=== PATIENT | female | born 1940 | race Caucasian/White ===

== ENCOUNTER 2021-05-24 14:12 | Outpatient (REF) | payer OTHER, SELFPAY ==
[2021-05-24 21:22] LABS: HCT 42.4 % (36.0-46.0); HGB 13.5 g/dL (11.2-15.7); MCH 28.4 pg (27.0-33.0); MCHC 31.8 % (32.0-36.0); MCV 89.1 fL (80-95); Platelet Count 209 10^3/uL (130-400); RBC 4.76 10^6/uL (3.93-5.22); RDW 14.8 % (11.7-14.6); RDW-SD 48.5 fL; WBC 4.67 10^3/uL (4.4-10.8)
[2021-05-24 21:48] LABS: Anion Gap 8.1 mmol/L (3-11); BUN 21 mg/dL (7-18); CO2 28.9 mmol/L (21.0-32.0); CREATININE 0.9 mg/dL (0.55-1.02); Calcium 9.9 mg/dL (8.5-10.1); Chloride 105 mmol/L (98-107); Glucose 108 mg/dL (74-106); Magnesium 2.3 mg/dL (1.8-2.4); Potassium 4.4 mmol/L (3.5-5.1); Sodium 142 mmol/L (136-145); TSH (W/Ref FT4) 2.02 uIU/mL (0.36-3.74)
== END 2021-05-24 14:13 | disposition home or self-care (01) ==
LOC: NCHCN 14:12
PROVIDERS: Visit Provider Nurse Practitioner Family
DX: I10 Essential (primary) hypertension (principal); Z79.82 Long term (current) use of aspirin; F32.9 Major depressive disorder, single episode, unspecified; Z51.81 Encounter for therapeutic drug level monitoring
CPT/HCPCS: 80048; 85027; 83735; 84443

== ENCOUNTER 2021-08-04 19:59 | Outpatient (REF) | payer OTHER, SELFPAY ==
[2021-08-04 21:37] LABS: Vitamin B12 318 pg/mL (193-986)
== END 2021-08-04 20:00 | disposition home or self-care (01) ==
LOC: NCHCN 19:59
PROVIDERS: Visit Provider Nurse Practitioner Family
DX: R41.3 Other amnesia (principal)
CPT/HCPCS: 82607

== ENCOUNTER 2022-03-14 21:07 | Outpatient (REF) | payer OTHER, MEDICARE, SELFPAY ==
--- OUTSIDE RECORDS SUMMARY | 2022-03-14 21:11 | XMS_ITS | CCD ---
:1940 Author Care Team Providers Name Role Phone RUKHSANA MCKINNON Attending Physician Unavailable Vital Signs Unknown or Not Available. Allergies Allergy Code Allergy Type Reaction Status No Known Allergies 0 No known allergies Act edita Procedures Unknown or Not Available. History of Immunizations Unknown or Not Available. Problems Problem Code Start Date Resolved Date Status Acute respiratory failure with 91360883 Active hypoxia Pneumonia 540411836 Active Fall in home 35666544 06/13/2021 01/20/2022 Resolved Chronic back pain 935921560 01/20/2022 Resolved Hypertension 51229813 01/20/2022 Resolved Hyperlipidemia 18973104 01/20/2022 Resolved Nasal fractures 846095055 06/13/2021 01/20/2022 Resolved Depression 14049013 01/20/2022 Resolved Hematoma of face 258185089 06/13/2021 01/20/2022 Resolved Results Unknown or Not Available. Active Medications Medication Code Dose Units Frequency Route Modification Start Date/Time Albuterol 6593044 2 PUFF NEEDED INHALATION 2 Sulfate HFA EVERY 4 11:43 0.09MG/1Actua HOURS tion Inhalation Suspension Prescription Detail 2 PUFF INHALATION NEEDED EVERY 4 HOURS Aspirin 81MG Oral Tablet, [id number] 81 MILLIGRAMS DAILY ORAL 01/24/2022 11:43 Chewable Prescription Detail TAKE 81 MILLIGRAMS ORAL AIDA Y Atorvastatin Calcium 40MG 073052 40 MILLIGRAMS DAILY ORAL 01/24/2022 11:43 Oral Tablet Prescription Detail TAKE 40 MILLIGRAMS ORAL AIDA Y Bisoprolol Fumarate 5MG Oral [id number] 5 MILLIGRAMS DAILY ORAL 01/24/2022 11:43 Tablet Prescription Detail TAKE 5 MILLIGRAMS ORAL DAILY DULoxetine HCl 60MG Oral [id number] 60 MILLIGRAMS DAILY ORAL 01/24/2022 11:43 Capsule, Delayed Release Prescription Detail TAKE 60 MILLIGRAMS ORAL ADIA Y Entresto 24MG-26MG Oral [id number] 1 EACH TWICE A DAY ORAL 01/24/2022 11:43 Tablet Prescription Detail TAKE 1 EACH ORAL TWICE A DAY Furosemide 20MG Oral Tablet [id number] 20 MILLIGRAMS DAILY ORAL 01/24/2022 11:43 Prescription Detail TAKE 20 MILLIGRAMS ORAL AIDA Y Omeprazole 20 MG Oral Tablet, [id number] 20 MG DAILY ORAL 01/24/2022 11:43 Delayed Release Prescription Detail TAKE 20 MG ORAL DAILY Amoxicillin 875MG Oral [id number] 1 TABLET TWICE A DAY ORAL 01/24/2022 11:40 Tablet Prescription Detail TAKE 1 TABLET ORAL TWICE A D AY Medications Administered During Visit Unknown or Not Available. 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 Discharge Instructions You were admitted to [facility] on 12/01/2021 12:36 with a principal diagnosis of Intervertebral disc disorders with ra diculopathy, lumbosacral region You were discharged from [facility] on 12/01/2021 12:36 Should you have any questions prior to d ischarge, please contact a member of your healthcare team. If you have left the spital and have any questions, please contact your primary care physician. Chief Complaint and Reason For Visit Chief Complaint Date of Onset pain Function Status Unknown or Not Available. Plan of Care Unknown or Not Available. Referral/Transition of Care Unknown or Not Available.
--- OUTSIDE RECORDS SUMMARY | 2022-03-14 21:11 | XMS_ITS | CCD ---
[...] Resolved Date Status Acute respiratory failure with 35857188 Active hypoxia Pneumonia 018181077 Active Fall in home 68982634 06/13/2021 01/20/2022 Resolved Chronic back pain 523473006 01/20/2022 Resolved Hypertension 31187533 01/20/2022 Resolved Hyperlipidemia 37600977 01/20/2022 Resolved Nasal fractures 222001390 06/13/2021 01/20/2022 Resolved Depression 76657655 01/20/2022 Resolved Hematoma of face 488139160 06/13/2021 01/20/2022 Resolved Results Unknown or Not Available. Active Medications Medication Code Dose Units Frequency Route Modification Start Date/Time Albuterol 6472795 2 PUFF NEEDED INHALATION 2 Sulfate HFA EVERY 4 11:43 0.09MG/1Actua HOURS tion Inhalation Suspension Prescription Detail 2 PUFF INHALATION NEEDED EVERY 4 HOURS Aspirin 81MG Oral Tablet, [id number] 81 MILLIGRAMS DAILY ORAL 01/24/2022 11:43 Chewable Prescription Detail TAKE 81 MILLIGRAMS ORAL AIDA Y Atorvastatin Calcium 40MG 058282 40 MILLIGRAMS DAILY ORAL 01/24/2022 11:43 Oral Tablet Prescription Detail TAKE 40 MILLIGRAMS ORAL AIDA Y Bisoprolol Fumarate 5MG Oral [id number] 5 MILLIGRAMS DAILY ORAL 01/24/2022 11:43 Tablet Prescription Detail TAKE 5 MILLIGRAMS ORAL DAILY DULoxetine HCl 60MG Oral [id number] 60 MILLIGRAMS DAILY ORAL 01/24/2022 11:43 Capsule, Delayed Release Prescription Detail TAKE 60 MILLIGRAMS ORAL AIDA Y Entresto 24MG-26MG Oral [id number] 1 EACH TWICE A DAY ORAL 01/24/2022 11:43 Tablet Prescription Detail TAKE 1 EACH ORAL TWICE A DAY Furosemide 20MG Oral Tablet [id number] 20 MILLIGRAMS DAILY ORAL 01/24/2022 11:43 Prescription Detail TAKE 20 MILLIGRAMS ORAL AIDA Y Omeprazole 20 MG Oral Tablet, [id number] 20 MG DAILY ORAL 01/24/2022 11:43 Delayed Release Prescription Detail TAKE 20 MG ORAL DAILY Amoxicillin 875MG Oral [id number] 1 TABLET TWICE A DAY ORAL 01/24/2022 11:40 Tablet Prescription Detail TAKE 1 TABLET ORAL TWICE A D AY Medications Administered During Visit Unknown or Not Available. Encounters Encounter Diagnosis Diagnosis Code Start Date Other low back pain M5459 12/14/2021 Social History Smoking Status Code Start Date End Date Former smoker [id number] Patient Decision Aids Unknown or Not Available. Discharge Instructions You were admitted to [facility] on 12/14/2021 10:26 with a principal diagnosis of Other low back pain You were discharged from [facility] on 12/14/2021 10:26 Should you have any questions prior to d ischarge, please contact a member of your healthcare team. If you have left the spital and have any questions, please contact your primary care physician. Chief Complaint and Reason For Visit Unknown or Not Available. Function Status Unknown or Not Available. Plan of Care Unknown or Not Available. Referral/Transition of Care Unknown or Not Available.
--- OUTSIDE RECORDS SUMMARY | 2022-03-14 21:12 | XMS_ITS | CCD ---
:1940 Author Care Team Providers Name Role Phone ABBY SINGH Attending Physician Unavailable Vital Signs Unknown or Not Available. Allergies Allergy Code Allergy Type Reaction Status No Known Allergies 0 No known allergies Act edita Procedures Unknown or Not Available. History of Immunizations Unknown or Not Available. Problems Problem Code Start Date Resolved Date Status Acute respiratory failure with 16562815 Active hypoxia Pneumonia 398378861 Active Fall in home 17138207 06/13/2021 01/20/2022 Resolved Chronic back pain 703590104 01/20/2022 Resolved Hypertension 27485889 01/20/2022 Resolved Hyperlipidemia 58316806 01/20/2022 Resolved Nasal fractures 956545454 06/13/2021 01/20/2022 Resolved Depression 74398251 01/20/2022 Resolved Hematoma of face 360612044 06/13/2021 01/20/2022 Resolved Results Unknown or Not Available. Active Medications Medication Code Dose Units Frequency Route Modification Start Date/Time Albuterol 9237678 2 PUFF NEEDED INHALATION 2 Sulfate HFA EVERY 4 11:43 0.09MG/1Actua HOURS tion Inhalation Suspension Prescription Detail 2 PUFF INHALATION NEEDED EVERY 4 HOURS Aspirin 81MG Oral Tablet, [id number] 81 MILLIGRAMS DAILY ORAL 01/24/2022 11:43 Chewable Prescription Detail TAKE 81 MILLIGRAMS ORAL AIDA Y Atorvastatin Calcium 40MG 461284 40 MILLIGRAMS DAILY ORAL 01/24/2022 11:43 Oral Tablet Prescription Detail TAKE 40 MILLIGRAMS ORAL AIDA Y Bisoprolol Fumarate 5MG Oral 309607 5 MILLIGRAMS DAILY ORAL 01/24/2022 11:43 Tablet Prescription Detail TAKE 5 MILLIGRAMS ORAL DAILY DULoxetine HCl 60MG Oral [id number] 60 MILLIGRAMS DAILY ORAL 01/24/2022 11:43 Capsule, Delayed Release Prescription Detail TAKE 60 MILLIGRAMS ORAL AIDA Y Entresto 24MG-26MG Oral [id number] 1 EACH TWICE A DAY ORAL 01/24/2022 11:43 Tablet Prescription Detail TAKE 1 EACH ORAL TWICE A DAY Furosemide 20MG Oral Tablet [id number] 20 MILLIGRAMS DAILY ORAL 01/24/2022 11:43 Prescription Detail TAKE 20 MILLIGRAMS ORAL AIDA Y Omeprazole 20 MG Oral Tablet, [id number] 20 MG DAILY ORAL 01/24/2022 11:43 Delayed Release Prescription Detail TAKE 20 MG ORAL DAILY Amoxicillin 875MG Oral [id number] 1 TABLET TWICE A DAY ORAL 01/24/2022 11:40 Tablet Prescription Detail TAKE 1 TABLET ORAL TWICE A D AY Medications Administered During Visit Unknown or Not Available. Encounters Encounter Diagnosis Diagnosis Code Start Date Post-traumatic headache, unspecified, not intractable [id number] 07/06/2021 Social History Smoking Status Code Start Date End Date Former smoker [id number] Patient Decision Aids Unknown or Not Available. Discharge Instructions You were admitted to [facility] on 07/06/2021 17:22 with a principal diagnosis of Post-traumatic headache, unspecified, not intractable You were discharged from [facility] on 07/06/2021 17:22 Should you have any questions prior to d ischarge, please contact a member of your healthcare team. If you have left the ho spital and have any questions, please contact your primary care physician. Chief Complaint and Reason For Visit Unknown or Not Available. Function Status Unknown or Not Available. Plan of Care Unknown or Not Available. Referral/Transition of Care Unknown or Not Available.
--- OUTSIDE RECORDS SUMMARY | 2022-03-14 21:12 | XMS_ITS | CCD ---
:1940 Author Care Team Providers Name Role Phone BRANDI LINDSAY Attending Physician Unavailable Vital Signs Unknown or Not Available. Allergies Allergy Code Allergy Type Reaction Status No Known Allergies 0 No known allergies Act edita Procedures Unknown or Not Available. History of Immunizations Unknown or Not Available. Problems Problem Code Start Date Resolved Date Status Acute respiratory failure with 60882654 Active hypoxia Pneumonia 145596795 Active Fall in home 09725411 06/13/2021 01/20/2022 Resolved Chronic back pain 431075318 01/20/2022 Resolved Hypertension 21271718 01/20/2022 Resolved Hyperlipidemia 98404191 01/20/2022 Resolved Nasal fractures 532653309 06/13/2021 01/20/2022 Resolved Depression 88240883 01/20/2022 Resolved Hematoma of face 234020262 06/13/2021 01/20/2022 Resolved Results Unknown or Not Available. Active Medications Medication Code Dose Units Frequency Route Modification Start Date/Time Albuterol 7301843 2 PUFF NEEDED INHALATION 2 Sulfate HFA EVERY 4 11:43 0.09MG/1Actua HOURS tion Inhalation Suspension Prescription Detail 2 PUFF INHALATION NEEDED EVERY 4 HOURS Aspirin 81MG Oral Tablet, [id number] 81 MILLIGRAMS DAILY ORAL 01/24/2022 11:43 Chewable Prescription Detail TAKE 81 MILLIGRAMS ORAL AIDA Y Atorvastatin Calcium 40MG 254318 40 MILLIGRAMS DAILY ORAL 01/24/2022 11:43 Oral Tablet Prescription Detail TAKE 40 MILLIGRAMS ORAL AIDA Y Bisoprolol Fumarate 5MG Oral 126151 5 MILLIGRAMS DAILY ORAL 01/24/2022 11:43 Tablet Prescription Detail TAKE 5 MILLIGRAMS ORAL DAILY DULoxetine HCl 60MG Oral [id number] 60 MILLIGRAMS DAILY ORAL 01/24/2022 11:43 Capsule, Delayed Release Prescription Detail TAKE 60 MILLIGRAMS ORAL AIDA Y Entresto 24MG-26MG Oral [id number] 1 EACH TWICE A DAY ORAL 01/24/2022 11:43 Tablet Prescription Detail TAKE 1 EACH ORAL TWICE A DAY Furosemide 20MG Oral Tablet [id number] 20 MILLIGRAMS DAILY ORAL 01/24/2022 11:43 Prescription Detail TAKE 20 MILLIGRAMS ORAL AIDA Y Omeprazole 20 MG Oral Tablet, [id number] 20 MG DAILY ORAL 01/24/2022 11:43 Delayed Release Prescription Detail TAKE 20 MG ORAL DAILY Amoxicillin 875MG Oral [id number] 1 TABLET TWICE A DAY ORAL 01/24/2022 11:40 Tablet Prescription Detail TAKE 1 TABLET ORAL TWICE A D AY Medications Administered During Visit Unknown or Not Available. Encounters Encounter Diagnosis Diagnosis Code Start Date Encounter for other specified aftercare Z5189 10/01/2020 Social History Smoking Status Code Start Date End Date Former smoker [id number] Patient Decision Aids Unknown or Not Available. Discharge Instructions You were admitted to [facility] on 10/01/2020 15:01 with a principal diagnosis of Encounter for other specifi ed aftercare You were discharged from [facility] on 10/01/2020 14:48 Should you have any questions prior to [...]
--- OUTSIDE RECORDS SUMMARY | 2022-03-14 21:12 | XMS_ITS | CCD ---
:1940 Author Care Team Providers Name Role Phone BC SIMMS Attending Physician Unavailable ADY BYNUM Roundgeorgi (Secondary) Physician Unavailab kari Vital Signs Unknown or Not Available. Allergies Allergy Code Allergy Type Reaction Status No Known Allergies 0 No known allergies Act edita Procedures Unknown or Not Available. History of Immunizations Unknown or Not Available. Problems Problem Code Start Date Resolved Date Status Acute respiratory failure with 24296890 Active hypoxia Pneumonia 446083547 Active Fall in home 68513482 06/13/2021 01/20/2022 Resolved Chronic back pain 190314476 01/20/2022 Resolved Hypertension 42871140 01/20/2022 Resolved Hyperlipidemia 79195525 01/20/2022 Resolved Nasal fractures 811425445 06/13/2021 01/20/2022 Resolved Depression 88878173 01/20/2022 Resolved Hematoma of face 546282533 06/13/2021 01/20/2022 Resolved Results Unknown or Not Available. Active Medications Medication Code Dose Units Frequency Route Modification Start Date/Time Albuterol 0867582 2 PUFF NEEDED INHALATION 2 Sulfate HFA EVERY 4 11:43 0.09MG/1Actua HOURS tion Inhalation Suspension Prescription Detail 2 PUFF INHALATION NEEDED EVERY 4 HOURS Aspirin 81MG Oral Tablet, [id number] 81 MILLIGRAMS DAILY ORAL 01/24/2022 11:43 Chewable Prescription Detail TAKE 81 MILLIGRAMS ORAL AIDA Y Atorvastatin Calcium 40MG 125105 40 MILLIGRAMS DAILY ORAL 01/24/2022 11:43 Oral Tablet Prescription Detail TAKE 40 MILLIGRAMS ORAL AIDA Y Bisoprolol Fumarate 5MG Oral 134429 5 MILLIGRAMS DAILY ORAL 01/24/2022 11:43 Tablet Prescription Detail TAKE 5 MILLIGRAMS ORAL DAILY DULoxetine HCl 60MG Oral [id number] 60 MILLIGRAMS DAILY ORAL 01/24/2022 11:43 Capsule, Delayed Release Prescription Detail TAKE 60 MILLIGRAMS ORAL AIDA Y Entresto 24MG-26MG Oral [id number] 1 EACH TWICE A DAY ORAL 01/24/2022 11:43 Tablet Prescription Detail TAKE 1 EACH ORAL TWICE A DAY Furosemide 20MG Oral Tablet [id number] 20 MILLIGRAMS DAILY ORAL 01/24/2022 11:43 Prescription Detail TAKE 20 MILLIGRAMS ORAL AIDA Y Omeprazole 20 MG Oral Tablet, [id number] 20 MG DAILY ORAL 01/24/2022 11:43 Delayed Release Prescription Detail TAKE 20 MG ORAL DAILY Amoxicillin 875MG Oral [id number] 1 TABLET TWICE A DAY ORAL 01/24/2022 11:40 Tablet Prescription Detail TAKE 1 TABLET ORAL TWICE A D AY Medications Administered During Visit Unknown or Not Available. Encounters Unknown or Not Available. Social History Smoking Status Code Start Date End Date Current some day smoker [id number] Patient Decision Aids Unknown or Not Available. Discharge Instructions You were admitted to [facility] on 01/20/2022 12:18 You were discharged from [facility] on 01/20/2022 17:37 Should you have any questions prior to [...]
--- OUTSIDE RECORDS SUMMARY | 2022-03-14 21:12 | XMS_ITS | CCD ---
:1940 Author Care Team Providers Name Role Phone BC SIMMS Attending Physician Unavailable UNLISTED REQUESTED, PROVIDER - Er Physician 1 Unavailab ADY Chi Roundgeorgi (Secondary) Physician Unavailab JENNIFER Cruz Registered Nurse Unavailable Vital Signs Vital Sign Value Unit Date/Time Recent/Initial? BMI (Body Mass Index) 27.46 kg/m^2 01/20/2022 09:28 In itial VS Weight Measured 160 lbs 01/20/2022 09:28 Initial VS Height 64 in 01/20/2022 09:28 Initial VS BSA (Body Surface Area) 1.81 m^2 01/20/2022 09:28 Initial VS BP Systolic 144 mmHg 01/20/2022 09:28 Initial VS BP Diastolic 74 mmHg 01/20/2022 09:28 Initial VS Respiratory Rate 20 bpm 01/20/2022 09:28 Initial VS Heart Rate 98 bpm 01/20/2022 09:28 Initial VS O2 % BldC Oximetry 98 % 01/20/2022 09:28 Initi al VS Body Temperature 37.8 degrees 01/20/2022 09:28 Initial VS BP Systolic 119 mmHg 01/24/2022 07:15 Most Recent VS BP Diastolic 66 mmHg 01/24/2022 07:15 Most Recent VS Body Temperature 36.7 degrees 01/24/2022 07:15 Most Re cent VS Respiratory Rate 16 bpm 01/24/2022 07:18 Most Re cent VS Heart Rate 69 bpm 01/24/2022 07:18 Most Recent VS O2 % BldC Oximetry 94 % 01/24/2022 07:18 Most Recent VS Allergies Allergy Code Allergy Type Reaction Status No Known Allergies 0 No known allergies Act edita Procedures Unknown or Not Available. History of Immunizations Unknown or Not Available. Problems Problem Code Start Date Resolved Date Status Acute respiratory failure with 39270430 Active hypoxia Pneumonia 106453511 Active Fall in home 71755070 06/13/2021 01/20/2022 Resolved Chronic back pain 457759116 01/20/2022 Resolved Hypertension 19298248 01/20/2022 Resolved Hyperlipidemia 02944924 01/20/2022 Resolved Nasal fractures 786927473 06/13/2021 01/20/2022 Resolved Depression 96146701 01/20/2022 Resolved Hematoma of face 972180849 06/13/2021 01/20/2022 Resolved Results BASIC METABOLIC PANEL (BMP) - Collect Da te/Time: 01/21/2022 06:41 Test Name Code Test Result Test Units Test Ref Range GLUCOSE 2345-7 150 mg/dL L=70 H=116 BUN 3094-0 14 mg/dL L=6 H=25 CREATININE 2160-0 0.67 mg/dL L=0.51 H=0.95 SODIUM SERUM 2951-2 139 mmol/L L=136 H=145 POTASSIUM SERUM 2823-3 3.9 mmol/L L=3.4 H=5.2 CHLORIDE SERUM 2075-0 104 mmol/L L=96 H=110 CARBON DIOXIDE (CO2) 2028-9 30 mmol/L L=22 H= 34 ANION GAP 50846-7 5.1 mmol/L CALCIUM SERUM 98306-1 9.8 mg/dL L=8.2 H=10.2 AGE 81 years eGFR (non-Afr.Amer.) 73513-5 84 mL/min eGFR (Afr-Norwegian) 60719-7 102 mL/min BASIC METABOLIC PANEL (BMP) - Collect Da te/Time: 01/20/2022 10:15 Test Name Code Test Result Test Units Test Ref Range GLUCOSE 2345-7 131 mg/dL L=70 H=116 BUN 3094-0 12 mg/dL L=6 H=25 CREATININE 2160-0 0.73 mg/dL L=0.51 H=0.95 SODIUM SERUM 2951-2 140 mmol/L L=136 H=145 POTASSIUM SERUM 2823-3 3.6 mmol/L L=3.4 H=5.2 CHLORIDE SERUM 2075-0 104 mmol/L L=96 H=110 CARBON DIOXIDE (CO2) 2028-9 29 mmol/L L=22 H= 34 ANION GAP 27073-5 7.4 mmol/L CALCIUM SERUM 58260-9 9.7 mg/dL L=8.2 H=10.2 AGE 81 years eGFR (non-Afr.Amer.) 52553-7 76 mL/min eGFR (Afr-Norwegian) 28751-2 92 mL/min CBC W/ DIFFERENTIAL* - Collect Date/Time : 01/22/2022 06:47 Test Name Code Test Result Test Units Test Ref Range WBC 6690-2 9.50 th/cmm L=5.00 H=10.00 NEUT % 79.5 % L=40.0 H=80.0 LYMPH % 14.5 % L=10.0 H=50.0 MONO % 17414-5 4.7 % L=2.0 H=12.0 EOS % 0.6 % L=0.0 H=8.0 BASO % 0.3 % L=0.0 H=3.0 IG % 2514-8 0.4 % L=0.0 H=1.1 NRBC % 54743-7 0.0 % L=0.0 H=0.0 NEUT abs count 751-8 7.5 th/cmm L=1.6 H=8.4 LYMPH abs count 731-0 1.4 th/cmm L=1.5 H=4.0 MONO abs count 742-7 0.5 th/cmm L=0.2 H=1.0 EOS abs count 711-2 0.1 th/cmm L=0.0 H=0.5 BASO abs count 704-7 0.0 th/cmm L=0.0 H=0.2 IG abs count 35449-0 0.0 th/cmm L=0.0 H=0.1 NRBC abs count 97576-3 0.0 mil/cmm L=0.0 H=0.0 RBC 789-8 4.20 mil/cmm L=3.90 H=5.40 HEMOGLOBIN 718-7 12.1 gm/dL L=12.0 H=16.0 HEMATOCRIT 4544-3 38 % L=37 H=47 MCV 787-2 91 fL L=82 H=92 MCH 785-6 28.8 pg L=27.0 H=31.0 MCHC 786-4 31.7 % L=32.0 H=36.0 RDW-SD 788-0 46.6 fL L=39.0 H=49.0 PLATELET COUNT 777-3 251 th/cmm L=150 H=450 CBC W/ DIFFERENTIAL* - Collect Date/Time : 01/21/2022 06:41 Test Name Code Test Result Test Units Test Ref Range WBC 6690-2 12.67 th/cmm L=5.00 H=10.00 NEUT % 90.8 % L=40.0 H=80.0 LYMPH % 4.3 % L=10.0 H=50.0 MONO % 51530-8 4.4 % L=2.0 H=12.0 EOS % 0.0 % L=0.0 H=8.0 BASO % 0.1 % L=0.0 H=3.0 IG % 2514-8 0.4 % L=0.0 H=1.1 NRBC % 02594-7 0.0 % L=0.0 H=0.0 NEUT abs count 751-8 11.5 th/cmm L=1.6 H=8.4 LYMPH abs count 731-0 0.6 th/cmm L=1.5 H=4.0 MONO abs count 742-7 0.6 th/cmm L=0.2 H=1.0 EOS abs count 711-2 0.0 th/cmm L=0.0 H=0.5 BASO abs count 704-7 0.0 th/cmm L=0.0 H=0.2 IG abs count 19179-9 0.1 th/cmm L=0.0 H=0.1 NRBC abs count 06868-4 0.0 mil/cmm L=0.0 H=0.0 RBC 789-8 3.85 mil/cmm L=3.90 H=5.40 HEMOGLOBIN 718-7 11.1 gm/dL L=12.0 H=16.0 HEMATOCRIT 4544-3 35 % L=37 H=47 MCV 787-2 90 fL L=82 H=92 MCH 785-6 28.8 pg L=27.0 H=31.0 MCHC 786-4 32.0 % L=32.0 H=36.0 RDW-SD 788-0 45.9 fL L=39.0 H=49.0 PLATELET COUNT 777-3 211 th/cmm L=150 H=450 Hypochromia 1+ N/A CBC W/ DIFFERENTIAL* - Collect Date/Time : 01/20/2022 10:15 Test Name Code Test Result Test Units Test Ref Range WBC 6690-2 9.92 th/cmm L=5.00 H=10.00 NEUT % 88.0 % L=40.0 H=80.0 LYMPH % 4.8 % L=10.0 H=50.0 MONO % 05486-9 6.3 % L=2.0 H=12.0 EOS % 0.4 % L=0.0 H=8.0 BASO % 0.2 % L=0.0 H=3.0 IG % 2514-8 0.3 % L=0.0 H=1.1 NRBC % 14340-0 0.0 % L=0.0 H=0.0 NEUT abs count 751-8 8.7 th/cmm L=1.6 H=8.4 LYMPH abs count 731-0 0.5 th/cmm L=1.5 H=4.0 MONO abs count 742-7 0.6 th/cmm L=0.2 H=1.0 EOS abs count 711-2 0.0 th/cmm L=0.0 H=0.5 BASO abs count 704-7 0.0 th/cmm L=0.0 H=0.2 IG abs count 05676-9 0.0 th/cmm L=0.0 H=0.1 NRBC abs count 72921-8 0.0 mil/cmm L=0.0 H=0.0 RBC 789-8 4.21 mil/cmm L=3.90 H=5.40 HEMOGLOBIN 718-7 12.3 gm/dL L=12.0 H=16.0 HEMATOCRIT 4544-3 38 % L=37 H=47 MCV 787-2 90 fL L=82 H=92 MCH 785-6 29.2 pg L=27.0 H=31.0 MCHC 786-4 32.4 % L=32.0 H=36.0 RDW-SD 788-0 46.5 fL L=39.0 H=49.0 PLATELET COUNT 777-3 182 th/cmm L=150 H=450 SUMMER COVID FLU RSV GENEXPERT - Collect Date/Time: 01/20/2022 09:39 Test Name Code Test Result Test Units Test Ref Range COVID 10787-2 NEGATIVE N/A Normal: Negativ e INFLUENZA A DNA 18627-3 NEGATIVE N/A Normal: Nega tive INFLUENZA B DNA 64253-7 NEGATIVE N/A Normal: Nega tive RSV DNA 31711-4 NEGATIVE N/A Normal: Negativ e CULT URINE CULTURE* - Collect Date/Time: 01/20/2022 11:15 Test Name Code Test Result Test Units Test Ref Range COLLECTION MODE: 69319-2 VOID N/A URINALYSIS WITH REFLEX CULT IF POSITIVE* - Collect Date/Time: 01/20/2022 11:15 Test Name Code Test Result Test Units Test Ref Range COLLECTION MODE: 39055-8 VOID N/A Color 5778-6 YELLOW N/A yellow Appearance 5767-9 SL CLOUD N/A clear Glucose urine 76079-1 NEGATIVE N/A negative mg/dl Bilirubin 5770-3 NEGATIVE N/A negative Ketones 2514-8 NEGATIVE N/A negative mg/dl Spec gravity 5811-5 1.015 N/A 1.003 - 1.030 pH urine 2756-5 6.5 N/A 5.0 - 7.0 Protein 63522-5 NEGATIVE N/A negative mg/dl Urobilinogen 82192-7 0.2 N/A <or= 1 EU/dl Nitrite. 5802-4 POSITIVE N/A negative Blood 5794-3 MODERATE N/A negative Leukocytes. NEGATIVE N/A negative MICROSCOPIC INDICATED N/A WBCs. 46974-6 0-5 N/A 0-5 / hpf RBCs 53779-6 10-25 N/A 0-5 / hpf Epith cells 17070-5 0-5 N/A 0-5 / hpf Cell types squamous N/A Crystals none N/A none Bacteria large N/A none Mucus 8247-9 none N/A none Casts 63175-9 none N/A none /lpf Active Medications Medication Code Dose Units Frequency Route Modification Start Date/Time Albuterol 8323003 2 PUFF NEEDED INHALATION 2 Sulfate HFA EVERY 4 11:43 0.09MG/1Actua HOURS tion Inhalation Suspension Prescription Detail 2 PUFF INHALATION NEEDED EVERY 4 HOURS Aspirin 81MG Oral Tablet, 163897 81 MILLIGRAMS DAILY ORAL 01/24/2022 11:43 Chewable Prescription Detail TAKE 81 MILLIGRAMS ORAL AIDA Y Atorvastatin Calcium 40MG 770657 40 MILLIGRAMS DAILY ORAL 01/24/2022 11:43 Oral Tablet Prescription Detail TAKE 40 MILLIGRAMS ORAL AIDA Y Bisoprolol Fumarate 5MG Oral 214777 5 MILLIGRAMS DAILY ORAL 01/24/2022 11:43 Tablet Prescription Detail TAKE 5 MILLIGRAMS ORAL DAILY DULoxetine HCl 60MG Oral 649136 60 MILLIGRAMS DAILY ORAL 01/24/2022 11:43 Capsule, Delayed Release Prescription Detail TAKE 60 MILLIGRAMS ORAL AIDA Y Entresto 24MG-26MG Oral 6569643 1 EACH TWICE A DAY ORAL 01/24/2022 11:43 Tablet Prescription Detail TAKE 1 EACH ORAL TWICE A DAY Furosemide 20MG Oral Tablet 355897 20 MILLIGRAMS DAILY ORAL 01/24/2022 11:43 Prescription Detail TAKE 20 MILLIGRAMS ORAL AIDA Y Omeprazole 20 MG Oral Tablet, [id number] 20 MG DAILY ORAL 01/24/2022 11:43 Delayed Release Prescription Detail TAKE 20 MG ORAL DAILY Amoxicillin 875MG Oral 241025 1 TABLET TWICE A DAY ORAL 01/24/2022 11:40 Tablet Prescription Detail TAKE 1 TABLET ORAL TWICE A D AY Medications Administered During Visit Medication Dose Units Frequency Route Date/Time of L ast Dose ACETAMINOPHEN INJ IVPB: 1000 MG X1 IVPB 1 03/22/2021 10:24 1000MG/100ML ALBUTEROL/IPRATROP 3 ML X1 INH 2021 10:39 UPDRAFT:2.5/0.5MG/3ML MethylPREDNISolone SUC INJ 125 MG X1 IVP 01/20/2022 10:33 SDV:125MG/2ML SODIUM CHLORIDE 0.9% 500ML 500 ML X1 IV 01/20/2022 10:23 AZITHROMYCIN IVPB: 500MG/250ML 500 MG X1 IVPB 01/20/2022 13:12 CefTRIAXone IVPB: 1GM/50ML 1 GM X1 IVPB 01/20/2022 11:55 ATORVASTATIN TABLET: 40MG 40 MG DAILY PO 01/24/2022 08:45 METOPROLOL SUCCINATE TABLET 25 MG DAILY PO 01/24/2022 08:45 ER: 25MG FUROSEMIDE TABLET: 20MG 20 MG DAILY PO 1 03/26/2021 08:45 PANTOPRAZOLE TABLET: 40MG 40 MG Q7AM PO 01/24/2022 06:36 ASPIRIN TABLET CHEWABLE: 81MG 81 MG DAILY PO 01/24/2022 08:45 ENOXAPARIN INJ SYRINGE: 30 MG Q24H SUBQ 1 03/24/2021 15:11 30MG/0.3ML SODIUM CHLORIDE 0.9% FLUSH 2 ML Q8H IVP 01/23/2022 06:49 10ML SYRINGE ACETAMINOPHEN TABLET: 325MG 650 MG PRN Q4H PO 01/20/2022 15:19 ACETAMINOPHEN INJ IVPB: 1000 MG PRN Q6H IVPB 1 03/24/2021 15:57 1000MG/100ML CefTRIAXone IVPB: 1GM/50ML 1 GM Q24H IVPB 01/23/2022 11:03 AZITHROMYCIN IVPB: 500MG/250ML 500 MG Q24H IVPB 01/22/2022 12:[address]: 30MG 60 MG DAILY PO 01/24/2022 08:45 SACUBITRIL/VALSARTAN TABLET: 1 TAB BID PO 01/24/2022 08:45 24MG/26MG ACETAMINOPHEN TABLET: 325MG 975 MG PRN Q6H PO 01/24/2022 06:39 ALBUTEROL/IPRATROP 3 ML QID RESP INH 2021 07:17 UPDRAFT:2.5/0.5MG/3ML BUDESONIDE UPDRAFT: 0.5MG/2ML 0.5 MG BID RESP INH 01/24/2022 07:17 NAPROXEN TABLET: 250MG 250 MG X1 PO 12:05 NAPROXEN TABLET: 250MG 250 MG BID WITH FOOD PO 01/24/2022 08:45 AMOXICILLIN CAPSULE: 250MG 500 MG TID PO 01/24/2022 08:45 Encounters Encounter Diagnosis Diagnosis Code Start Date Pneumonia, unspecified organism J189 01/21/20 22 Social History Smoking Status Code Start Date End Date Current some day smoker [id number] Patient Decision Aids Patient Decision Aid Patient Portal Access Pneumonia Discharge Instructions You were admitted to [facility] on 01/20/2022 12:18 with a principal diagnosis of Pneumonia, unspecified organism You had the following tests done: CBC W / DIFFERENTIAL* BASIC METABOLIC PANEL (BMP) CBC W/ DIFFERENTIAL* CULT URINE CULTURE* URINALYSIS WITH REFLEX CULT IF POSITIVE* BASIC METABOLIC PANEL (BMP) CBC W/ DIFFE RENTIAL* [facility] COVID FLU RSV GENEXPERT You were discharged from [facility] on 01/24/2022 14:15 Should you have any questions prior to d ischarge, please contact a member of your healthcare team. If you have left the ho spital and have any questions, please contact your primary care physician. Chief Complaint and Reason For Visit Chief Complaint Date of Onset RESPIRATORY FAILURE/ PNEUMONIA 01/21/2022 Function Status Unknown or Not Available. Plan of Care Unknown or Not Available. Referral/Transition of Care Unknown or Not Available.
--- OUTSIDE RECORDS SUMMARY | 2022-03-14 21:12 | XMS_ITS | CCD ---
:1940 Author Care Team Providers Name Role Phone JENNIFER RIVERS, WILEY Gonzalez Attending Physician Unavailable Vital Signs Unknown or Not Available. Allergies Allergy Code Allergy Type Reaction Status No Known Allergies 0 No known allergies Act deita Procedures Unknown or Not Available. History of Immunizations Unknown or Not Available. Problems Problem Code Start Date Resolved Date Status Acute respiratory failure with 01555822 Active hypoxia Pneumonia 681403046 Active Fall in home 47913622 06/13/2021 01/20/2022 Resolved Chronic back pain 856962482 01/20/2022 Resolved Hypertension 86564702 01/20/2022 Resolved Hyperlipidemia 18331417 01/20/2022 Resolved Nasal fractures 823160688 06/13/2021 01/20/2022 Resolved Depression 48496242 01/20/2022 Resolved Hematoma of face 181283940 06/13/2021 01/20/2022 Resolved Results Unknown or Not Available. Active Medications Medication Code Dose Units Frequency Route Modification Start Date/Time Albuterol 1773527 2 PUFF NEEDED INHALATION 2 Sulfate HFA EVERY 4 11:43 0.09MG/1Actua HOURS tion Inhalation Suspension Prescription Detail 2 PUFF INHALATION NEEDED EVERY 4 HOURS Aspirin 81MG Oral Tablet, 523835 81 MILLIGRAMS DAILY ORAL 01/24/2022 11:43 Chewable Prescription Detail TAKE 81 MILLIGRAMS ORAL AIDA Y Atorvastatin Calcium 40MG 173333 40 MILLIGRAMS DAILY ORAL 01/24/2022 11:43 Oral Tablet Prescription Detail TAKE 40 MILLIGRAMS ORAL AIDA Y Bisoprolol Fumarate 5MG Oral 572733 5 MILLIGRAMS DAILY ORAL 01/24/2022 11:43 Tablet Prescription Detail TAKE 5 MILLIGRAMS ORAL DAILY DULoxetine HCl 60MG Oral 037656 60 MILLIGRAMS DAILY ORAL 01/24/2022 11:43 Capsule, Delayed Release Prescription Detail TAKE 60 MILLIGRAMS ORAL AIDA Y Entresto 24MG-26MG Oral 0541422 1 EACH TWICE A DAY ORAL 01/24/2022 11:43 Tablet Prescription Detail TAKE 1 EACH ORAL TWICE A DAY Furosemide 20MG Oral Tablet 507071 20 MILLIGRAMS DAILY ORAL 01/24/2022 11:43 Prescription Detail TAKE 20 MILLIGRAMS ORAL AIDA Y Omeprazole 20 MG Oral Tablet, [id number] 20 MG DAILY ORAL 01/24/2022 11:43 Delayed Release Prescription Detail TAKE 20 MG ORAL DAILY Amoxicillin 875MG Oral 454733 1 TABLET TWICE A DAY ORAL 01/24/2022 11:40 Tablet Prescription Detail TAKE 1 TABLET ORAL TWICE A D AY Medications Administered During Visit Unknown or Not Available. 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 Discharge Instructions You were admitted to [facility] on 09/16/2020 10:34 with a principal diagnosis of Nonrheumatic aortic valve d isorder, unspecified You were discharged from [facility] on 09/16/2020 10:34 Should you have any questions prior to [...]
--- OUTSIDE RECORDS SUMMARY | 2022-03-14 21:12 | XMS_ITS | CCD ---
:1940 Author Care Team Providers Name Role Phone WILEY RODRIGUEZ MD Attending Physician Unavailable CHARISSA DOWNING (Secondary) Physician Unavailab le Vital Signs Unknown or Not Available. Allergies Allergy Code Allergy Type Reaction Status No Known Allergies 0 No known allergies Act edita Procedures Unknown or Not Available. History of Immunizations Unknown or Not Available. Problems Problem Code Start Date Resolved Date Status Acute respiratory failure with 55705402 Active hypoxia Pneumonia 967620887 Active Fall in home 24543549 06/13/2021 01/20/2022 Resolved Chronic back pain 894186557 01/20/2022 Resolved Hypertension 37968852 01/20/2022 Resolved Hyperlipidemia 73207616 01/20/2022 Resolved Nasal fractures 355614312 06/13/2021 01/20/2022 Resolved Depression 51118526 01/20/2022 Resolved Hematoma of face 197152433 06/13/2021 01/20/2022 Resolved Results Unknown or Not Available. Active Medications Medication Code Dose Units Frequency Route Modification Start Date/Time Albuterol 1753738 2 PUFF NEEDED INHALATION 2 Sulfate HFA EVERY 4 11:43 0.09MG/1Actua HOURS tion Inhalation Suspension Prescription Detail 2 PUFF INHALATION NEEDED EVERY 4 HOURS Aspirin 81MG Oral Tablet, 080592 81 MILLIGRAMS DAILY ORAL 01/24/2022 11:43 Chewable Prescription Detail TAKE 81 MILLIGRAMS ORAL AIDA Y Atorvastatin Calcium 40MG 283221 40 MILLIGRAMS DAILY ORAL 01/24/2022 11:43 Oral Tablet Prescription Detail TAKE 40 MILLIGRAMS ORAL AIDA Y Bisoprolol Fumarate 5MG Oral 367680 5 MILLIGRAMS DAILY ORAL 01/24/2022 11:43 Tablet Prescription Detail TAKE 5 MILLIGRAMS ORAL DAILY DULoxetine HCl 60MG Oral 524765 60 MILLIGRAMS DAILY ORAL 01/24/2022 11:43 Capsule, Delayed Release Prescription Detail TAKE 60 MILLIGRAMS ORAL AIDA Y Entresto 24MG-26MG Oral 8137534 1 EACH TWICE A DAY ORAL 01/24/2022 11:43 Tablet Prescription Detail TAKE 1 EACH ORAL TWICE A DAY Furosemide 20MG Oral Tablet 212709 20 MILLIGRAMS DAILY ORAL 01/24/2022 11:43 Prescription Detail TAKE 20 MILLIGRAMS ORAL AIDA Y Omeprazole 20 MG Oral Tablet, [id number] 20 MG DAILY ORAL 01/24/2022 11:43 Delayed Release Prescription Detail TAKE 20 MG ORAL DAILY Amoxicillin 875MG Oral 307226 1 TABLET TWICE A DAY ORAL 01/24/2022 11:40 Tablet Prescription Detail TAKE 1 TABLET ORAL TWICE A D AY Medications Administered During Visit Unknown or Not Available. 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 Discharge Instructions You were admitted to [facility] on 09/18/2020 07:04 with a principal diagnosis of Presence of prosthetic hear t valve You were discharged from [facility] on 10/19/2020 14:17 Should you have any questions prior to [...]
--- OUTSIDE RECORDS SUMMARY | 2022-03-14 21:12 | XMS_ITS | CCD ---
:1940 Author Care Team Providers Name Role Phone MONIKA TYLER Attending Physician Unavailable MONIKA TYLER Er Physician 1 Unavailable H., WILFRID Registered Nurse Unavailable Vital Signs Vital Sign Value Unit Date/Time Recent/Initial? BMI (Body Mass Index) 36.05 kg/m^2 06/13/2021 12:28 In itial VS Weight Measured 210 lbs 06/13/2021 12:28 Initial VS Height 64 in 06/13/2021 12:28 Initial VS BSA (Body Surface Area) 2.07 m^2 06/13/2021 12:28 Initial VS BP Systolic 135 mmHg 06/13/2021 12:28 Initial VS BP Diastolic 99 mmHg 06/13/2021 12:28 Initial VS Respiratory Rate 18 bpm 06/13/2021 12:28 Initial VS Heart Rate 78 bpm 06/13/2021 12:28 Initial VS O2 % BldC Oximetry 95 % 06/13/2021 12:28 Initi al VS Body Temperature 36.1 degrees 06/13/2021 12:28 Initial VS Allergies Allergy Code Allergy Type Reaction Status No Known Allergies 0 No known allergies Act edita Procedures Unknown or Not Available. History of Immunizations Unknown or Not Available. Problems Problem Code Start Date Resolved Date Status Acute respiratory failure with 52026115 Active hypoxia Pneumonia 560125271 Active Fall in home 21920862 06/13/2021 01/20/2022 Resolved Chronic back pain 306754479 01/20/2022 Resolved Hypertension 43998674 01/20/2022 Resolved Hyperlipidemia 51734928 01/20/2022 Resolved Nasal fractures 826953262 06/13/2021 01/20/2022 Resolved Depression 29754170 01/20/2022 Resolved Hematoma of face 820341968 06/13/2021 01/20/2022 Resolved Results Unknown or Not Available. Active Medications Unknown or Not Available. Medications Administered During Visit Unknown or Not Available. Encounters Encounter Diagnosis Diagnosis Code Start Date Fracture of nasal bones, initial encounter for closed [id number] A 06/13/2021 fracture Social History Smoking Status Code Start Date End Date Former smoker [id number] Patient Decision Aids Patient Decision Aid Fall Prevention for Older Adults Nasal Fracture Discharge Instructions You were admitted to [facility] on 06/13/2021 12:14 with a principal diagnosis of Fracture of nasal bones, initial enco unter for closed fracture You were discharged from [facility] on 06/13/2021 13:59 Should you have any questions prior to d ischarge, please contact a member of your healthcare team. If you have left the spital and have any questions, please contact your primary care physician. Chief Complaint and Reason For Visit Chief Complaint Date of Onset SP FALL Function Status Unknown or Not Available. Plan of Care Unknown or Not Available. Referral/Transition of Care Unknown or Not Available.
--- OUTSIDE RECORDS SUMMARY | 2022-03-14 21:12 | XMS_ITS | CCD ---
:1940 Author Care Team Providers Name Role Phone BC SIMMS Attending Physician Unavailable Vital Signs Unknown or Not Available. Allergies Allergy Code Allergy Type Reaction Status No Known Allergies 0 No known allergies Act edita Procedures Unknown or Not Available. History of Immunizations Unknown or Not Available. Problems Problem Code Start Date Resolved Date Status Acute respiratory failure with 30978667 Active hypoxia Pneumonia 998083742 Active Fall in home 43988506 06/13/2021 01/20/2022 Resolved Chronic back pain 391794827 01/20/2022 Resolved Hypertension 80852738 01/20/2022 Resolved Hyperlipidemia 69134392 01/20/2022 Resolved Nasal fractures 983324486 06/13/2021 01/20/2022 Resolved Depression 99913134 01/20/2022 Resolved Hematoma of face 889699397 06/13/2021 01/20/2022 Resolved Results Unknown or Not Available. Active Medications Medication Code Dose Units Frequency Route Modification Start Date/Time Albuterol 3045054 2 PUFF NEEDED INHALATION 2 Sulfate HFA EVERY 4 11:43 0.09MG/1Actua HOURS tion Inhalation Suspension Prescription Detail 2 PUFF INHALATION NEEDED EVERY 4 HOURS Aspirin 81MG Oral Tablet, 059458 81 MILLIGRAMS DAILY ORAL 01/24/2022 11:43 Chewable Prescription Detail TAKE 81 MILLIGRAMS ORAL AIDA Y Atorvastatin Calcium 40MG 370038 40 MILLIGRAMS DAILY ORAL 01/24/2022 11:43 Oral Tablet Prescription Detail TAKE 40 MILLIGRAMS ORAL AIDA Y Bisoprolol Fumarate 5MG Oral 343659 5 MILLIGRAMS DAILY ORAL 01/24/2022 11:43 Tablet Prescription Detail TAKE 5 MILLIGRAMS ORAL DAILY DULoxetine HCl 60MG Oral 973855 60 MILLIGRAMS DAILY ORAL 01/24/2022 11:43 Capsule, Delayed Release Prescription Detail TAKE 60 MILLIGRAMS ORAL AIDA Y Entresto 24MG-26MG Oral 4966999 1 EACH TWICE A DAY ORAL 01/24/2022 11:43 Tablet Prescription Detail TAKE 1 EACH ORAL TWICE A DAY Furosemide 20MG Oral Tablet 178745 20 MILLIGRAMS DAILY ORAL 01/24/2022 11:43 Prescription Detail TAKE 20 MILLIGRAMS ORAL AIDA Y Omeprazole 20 MG Oral Tablet, 47311602775 20 MG DAILY ORAL 01/24/2022 11:43 Delayed Release Prescription Detail TAKE 20 MG ORAL DAILY Amoxicillin 875MG Oral 066512 1 TABLET TWICE A DAY ORAL 01/24/2022 11:40 Tablet Prescription Detail TAKE 1 TABLET ORAL TWICE A D AY Medications Administered During Visit Unknown or Not Available. Encounters Encounter Diagnosis Diagnosis Code Start Date Respiratory failure, unspecified with hypoxia J9691 01/20/2022 Social History Smoking Status Code Start Date End Date Current some day smoker [id number] Patient Decision Aids Unknown or Not Available. Discharge Instructions You were admitted to [facility] on 01/20/2022 00:47 with a principal diagnosis of Respiratory failure, unspecified with hypoxia You were discharged from [facility] on 01/24/2022 00:48 Should you have any questions prior to [...]
[2022-03-14 21:52] LABS: Epithelial Cells Few HPF (Negative); RBC 0-2 HPF (0-2)
[2022-03-14 21:53] LABS: Bacteria Many HPF (Negative); C & S Indicated? C&S Done As Ordered; Crystals Negative HPF (Negative); Mucus Negative (Negative)
== END 2022-03-14 21:08 | disposition home or self-care (01) ==
LOC: NCHCN 21:07
PROVIDERS: Visit Provider Nurse Practitioner Family
DX: R39.9 Unspecified symptoms and signs involving the genitourinary system (principal)
CPT/HCPCS: 87077; 81015; 87086; 87186

== ENCOUNTER 2023-01-24 16:49 | Outpatient (REF) | payer OTHER, MEDICARE, SELFPAY ==
[2023-01-24 20:44] LABS: Anion Gap 5.9 mmol/L (3-11); BUN 23 mg/dL (7-18); CO2 26.1 mmol/L (21.0-32.0); CREATININE 1.1 mg/dL (0.55-1.02); Calcium 10.2 mg/dL (8.5-10.1); Chloride 109 mmol/L (98-107); Estimated GFR 49.55 (mL/min/1.73m2); Glucose 112 mg/dL (74-106); NT-proBNP 250 pg/mL (<300); Potassium 4.3 mmol/L (3.5-5.1); Sodium 141 mmol/L (136-145)
[2023-01-24 20:47] LABS: Hemoglobin A1C 6.2 % (<5.7)
== END 2023-01-24 16:50 | disposition home or self-care (01) ==
LOC: NCHCN 16:49
PROVIDERS: Visit Provider Nurse Practitioner Family
DX: I50.43 Acute on chronic combined systolic (congestive) and diastolic (congestive) heart failure (principal); R73.9 Hyperglycemia, unspecified; J18.9 Pneumonia, unspecified organism
CPT/HCPCS: 80048; 83036; 83880

== ENCOUNTER 2024-09-16 16:09 | Outpatient (REF) | payer MEDICARE, SELFPAY | END 2024-09-16 16:10 | disposition home or self-care (01) | LOC: NCHCN 16:09 | PROVIDERS: PCP Nurse Practitioner Family; Visit Provider Nurse Practitioner Family | DX: R30.0 Dysuria (principal) | CPT/HCPCS: 87077; 87086; 87186 ==

== ENCOUNTER 2024-09-30 14:22 | Outpatient (REF) | payer MEDICARE, SELFPAY ==
[2024-09-30 21:46] LABS: HCT 35.8 % (36.0-46.0); HGB 11.7 g/dL (11.2-15.7); MCH 27.7 pg (27.0-33.0); MCHC 32.7 % (32.0-36.0); MCV 85 fL (80-95); MPV 11.3 fL (8.0-11.0); Platelet Count 210 10^3/uL (130-400); RBC 4.22 10^6/uL (3.93-5.22); RDW 15.6 % (11.7-14.6); RDW-SD 48.0 fL; WBC 3.90 10^3/uL (4.4-10.8)
[2024-09-30 22:23] LABS: ALT 18 U/L (14-59); AST 18 U/L (15-37); Albumin 3.5 g/dL (3.4-5.0); Alkaline Phosphatase 79 U/L (46-116); Anion Gap 7.6 mmol/L (3-11); BUN 13 mg/dL (7-18); Bilirubin, Total 0.8 mg/dL (0.2-1.0); CO2 30.4 mmol/L (21.0-32.0); Calcium 9.8 mg/dL (8.5-10.1); Chloride 105 mmol/L (98-107); Estimated GFR 71.71 (mL/min/1.73m2); Folate 12.3 ng/mL (8.6-20.0); Glucose 100 mg/dL (74-106); Potassium 3.5 mmol/L (3.5-5.1); Sodium 143 mmol/L (136-145); TSH (W/Ref FT4) 3.73 uIU/mL (0.36-3.74); Total Protein 6.1 g/dL (6.4-8.2); Vitamin B12 369 pg/mL (193-986); Vitamin D 25 Total 25 ng/mL (30-100)
== END 2024-09-30 14:23 | disposition home or self-care (01) ==
LOC: NCHCN 14:22
PROVIDERS: PCP Nurse Practitioner Family; Visit Provider Nurse Practitioner Family
DX: Z13.89 Encounter for screening for other disorder (principal); R53.83 Other fatigue
CPT/HCPCS: 80053; 82306; 85027; 82607; 82746; 84443

== ENCOUNTER 2025-01-29 11:32 | Outpatient (REF) | payer MEDICARE, SELFPAY | END 2025-01-29 11:33 | disposition home or self-care (01) | LOC: NCHCN 11:32 | PROVIDERS: PCP Nurse Practitioner Family; Visit Provider Nurse Practitioner Family | DX: R41.82 Altered mental status, unspecified (principal) | CPT/HCPCS: 87077; 87086; 87186 ==